=== PATIENT | male | born 1995 | race Caucasian/White ===

== ENCOUNTER 2017-12-23 00:02 | Emergency (ER) | payer OTHER ==
[2017-12-23] MEDS ORDERED: CEPHALEXIN 500 MG CAPSULE PO ONE (01:01)
[2017-12-23] MEDS ORDERED: DEXAMETHASONE SOD PHOS INJ 10 MG/1 ML VIAL IM ONE (01:01)
--- NOTE | 2017-12-23 01:09 | ER Document Report ---
HPI - HPI Patient complains to provider of: Sore throat, fever Pain Level: 4 Context: Patient is a 22-year-old male comes emergency department for chief complaint of sore throat and intermittent fever/chills with sweats over the past 2 days. He states he is having pain in the front of his neck now. Denies cough, shortness of breath, headache, vomiting, or any other current symptoms. No obvious sick contacts. No history of the same. No daily medications. Past Medical History - General Information source: Patient - Social History Smoking Status: Never Smoker Cigarette use (# per day): No Chew tobacco use (# tins/day): Yes Drug Abuse: None Lives with: Spouse/Significant other Family History: Reviewed & Not Pertinent - Medical History Medical History: Negative Surgical Hx: Negative - Immunizations Immunizations up to date: Yes Hx Diphtheria, Pertussis, Tetanus Vaccination: Yes Vertical Provider Document - CONSTITUTIONAL General Appearance: WD/WN, No Apparent Distress - INFECTION CONTROL TRAVEL OUTSIDE OF THE [place] IN LAST 30 DAYS: No - HEENT HEENT: Atraumatic, Normocephalic. negative: Normal ENT Exam - Exudative tonsillitis noted, no uvular edema, no evidence of peritonsillar abscess, clear airway, unremarkable ENT exam otherwise. - NECK Neck: Other - Bilateral cervical adenopathy, no submandibular swelling suggesting Luis's angina - RESPIRATORY Respiratory: Breath Sounds Normal, No Respiratory Distress - CARDIOVASCULAR Cardiovascular: Regular Rate, Regular Rhythm - GI/ABDOMEN Gastrointestinal: Abdomen Soft, Abdomen Non-Tender - NEURO Level of Consciousness: Awake, Alert, Appropriate - DERM Integumentary: Warm, Dry, No Rash Course - Re-evaluation Re-evalutation: Patient declines throat swab, he does have all 4 center criteria with fever, exudative pharyngitis, no cough, and cervical adenopathy. Patient is allergic to penicillin, given Keflex. Discussed follow-up, return precautions, patient states understanding and agreement. - Vital Signs Vital signs: Temp Pulse Resp BP Pulse Ox 99.3 F 63 14 131/76 H 99 12/23/17 00:20 12/23/17 00:20 12/23/17 00:20 12/23/17 00:20 12/23/17 00:20 Discharge - Discharge Clinical Impression: Exudative pharyngitis, Anterior cervical lymphadenopathy Condition: Stable Disposition: HOME, SELF-CARE Additional Instructions: Your examination meets the criteria for strep throat. You have been treated with the initial dose, take antibiotics to completion. Take Tylenol or ibuprofen for fever and pain. Drink plenty fluids and rest. Follow-up with primary care. Return if you worsen including worsening swelling , difficulty swallowing, or any other concerning symptoms. Prescriptions: Cephalexin Monohydrate [Keflex 500 mg Capsule] 500 mg PO BID #20 capsule Forms: Return to Work
[2017-12-23 02:01] VITALS: BP 130/73
== END 2017-12-23 02:00 | disposition home or self-care (01) ==
LOC: ER 00:02
DX: J02.9 Acute pharyngitis, unspecified (principal); R59.1 Generalized enlarged lymph nodes; R50.9 Fever, unspecified
CPT/HCPCS: 99282; 96372; J1100

== ENCOUNTER 2018-08-11 19:13 | Emergency (ER) | payer OTHER ==
[2018-08-11 19:47] VITALS: BP 123/75
--- NOTE | 2018-08-11 20:08 | RADIOLOGY REPORT (SQ) ---
EXAM DESCRIPTION: XR RIGHT SHOULDER 2 OR MORE VIEWS COMPLETED DATE/TME: 08/11/2018 00:00 CLINICAL HISTORY: 23 years, Male, Injured R shoulder lifting weights 2 wks ago COMPARISON: None. NUMBER OF VIEWS: TECHNIQUE: LIMITATIONS: None. FINDINGS: No fracture or dislocation. The acromioclavicular joint appears intact. There are no soft tissue calcifications. IMPRESSION: No radiographic abnormality. copyright 2010 [employer]- All Rights Reserved
--- NOTE | 2018-08-11 21:16 | ER Document Report ---
ED General - General Chief Complaint: Shoulder Pain Stated Complaint: RIGHT SHOULDER PAIN Time Seen by Provider: 08/11/18 20:45 TRAVEL OUTSIDE OF THE [place] IN LAST 30 DAYS: No - HPI Notes: Patient presents to the emergency department for evaluation of right shoulder pain. Is been going on for weeks. It has been insidious in onset. He denies any injury. He states that "goes out of socket" multiple times a day. He states he cannot move it. He states his friends have to put it back in place. He has no other joint pains. No fevers or chills. Otherwise he is in good health. - Related Data Allergies/Adverse Reactions: amoxicillin Allergy (Verified 12/23/17 00:16) Penicillins Allergy (Verified 12/23/17 00:16) Past Medical History - General Information source: Patient - Social History Smoking Status: Current Every Day Smoker Chew tobacco use (# tins/day): No Frequency of alcohol use: Social Drug Abuse: None Family History: Reviewed & Not Pertinent Patient has suicidal ideation: No Patient has homicidal ideation: No Renal/ Medical History: Denies: Hx Peritoneal Dialysis - Immunizations Immunizations up to date: Yes Hx Diphtheria, Pertussis, Tetanus Vaccination: Yes Review of Systems - Review of Systems Constitutional: No symptoms reported EENT: No symptoms reported Cardiovascular: No symptoms reported Respiratory: No symptoms reported Gastrointestinal: No symptoms reported Musculoskeletal: See HPI Physical Exam - Vital signs Vitals: Temp Pulse Resp BP Pulse Ox 98.7 F 61 16 123/75 98 08/11/18 19:46 08/11/18 19:46 08/11/18 19:46 08/11/18 19:46 08/11/18 19:46 Interpretation: Normal - Notes Notes: Patient is a 23-year-old male in no acute distress. Head is normocephalic and atraumatic. Heart regular rate and rhythm. Lungs are clear all station bilaterally. Examination of the right upper extremity has no obvious deformity. Passive range of motion is limited in flexion to approximately 100 degrees secondary to pain. Negative Gurmeet's test. Negative apprehension test. Radial pulses 2+. Negative drop arm test. Drinks plus 5 out of 5 at the elbow, wrist, fingers, thumb. Capillary refill is brisk. Course - Re-evaluation Re-evalutation: 08/11/18 21:13 Patient presents to the emergency department for evaluation of shoulder pain. I explained to him that I do not see any signs of dislocation on his exam or on imaging. Certainly he could be having some mild subluxation. I explained to him we will place him on anti-inflammatories. If his symptoms persist he may need an MRI. He did want a sling. I talked to him about the risks of adhesive capsulitis and he voiced understanding. We will have him follow-up with primary care, return to the ED with worsening or new concerning symptoms. - Vital Signs Vital signs: Temp Pulse Resp BP Pulse Ox 98.7 F 61 16 123/75 98 08/11/18 19:46 08/11/18 19:46 08/11/18 19:46 08/11/18 19:46 08/11/18 19:46 - Diagnostic Test Radiology reviewed: Reports reviewed - Unremarkable Discharge - Discharge Clinical Impression: Right shoulder pain Disposition: HOME, SELF-CARE Instructions: Temporary Sling ([facility]), Shoulder Injury ([facility]) Additional Instructions: Wear sling as discussed. Be sure to practice range of motion to avoid frozen shoulder. Take medication as prescribed, with food. If symptoms persist in 1-2 weeks, follow-up with primary care. Return to the emergency department with worsening or new concerning symptoms.
== END 2018-08-11 21:29 | disposition home or self-care (01) ==
LOC: ER 19:13
DX: M25.511 Pain in right shoulder (principal); F17.200 Nicotine dependence, unspecified, uncomplicated; Z88.0 Allergy status to penicillin
CPT/HCPCS: 99283

== ENCOUNTER 2019-11-25 04:57 | Emergency (ER) | payer OTHER ==
[2019-11-25 05:08] VITALS: BP 137/86
== END 2019-11-25 05:50 | disposition left against medical advice (07) ==
LOC: ER 04:57
DX: Z53.21 Procedure and treatment not carried out due to patient leaving prior to being seen by health care provider (principal)

== ENCOUNTER 2020-03-18 11:50 | Emergency (ER) | payer SELFPAY ==
[2020-03-18 11:58] VITALS: BP 136/87
[2020-03-18] MEDS ORDERED: FAMOTIDINE 20 MG TABLET PO ONE (12:09)
[2020-03-18] MEDS ORDERED: METHYLPREDNISOLONE INJ 125 MG/2 ML SDV IM ONE (12:09)
[2020-03-18] MEDS ORDERED: DIPHENHYDRAMINE HCL 50 MG/ML VIAL IM ONE (12:09)
--- NOTE | 2020-03-18 12:09 | ER Document Report ---
ED Medical Screen (RME) - General Chief Complaint: Redness of Eye Stated Complaint: EYE IRRITATION Time Seen by Provider: 03/18/20 12:03 Mode of Arrival: Ambulatory Information source: Patient Notes: 24-year-old male presented to ED for poison tk to both hands and around both eyes. Both eyes are swollen inflamed. He states both eyes do hurt. We will give him Benadryl Pepcid and Solu-Medrol. He will be observed to ensure this does decrease the pressure and he will get an eye exam by another physician. Patient is alert oriented respirations regular nonlabored speaking in full sentences. I have greeted and performed a rapid initial assessment of this patient. A comprehensive ED assessment and evaluation of the patient, analysis of test results and completion of medical decision making process will be conducted by an additional ED providers. TRAVEL OUTSIDE OF THE [place] IN LAST 30 DAYS: No - Related Data Allergies/Adverse Reactions: amoxicillin Allergy (Verified 03/18/20 12:05) Penicillins Allergy (Verified 03/18/20 12:05) Past Medical History - Social History Chew tobacco use (# tins/day): No Frequency of alcohol use: None Drug Abuse: None Renal/ Medical History: Denies: Hx Peritoneal Dialysis - Immunizations Immunizations up to date: Yes Hx Diphtheria, Pertussis, Tetanus Vaccination: Yes Physical Exam - Vital signs Vitals: Temp Pulse Resp BP Pulse Ox 98.5 F 96 16 136/87 H 99 03/18/20 11:56 03/18/20 11:56 03/18/20 11:56 03/18/20 11:56 03/18/20 11:56 Course - Vital Signs Vital signs: Temp Pulse Resp BP Pulse Ox 98.5 F 96 16 136/87 H 99 03/18/20 11:56 03/18/20 11:56 03/18/20 11:56 03/18/20 11:56 03/18/20 11:56
--- NOTE | 2020-03-18 14:27 | ER Document Report ---
ED General - General Chief Complaint: Eye Problem Stated Complaint: EYE IRRITATION Time Seen by Provider: 03/18/20 12:03 Mode of Arrival: Ambulatory Notes: Patient is a 24-year-old male who presents emergency department with a chief complaint of a rash to his entire body, primarily his arms, torso, and face. Patient states that he was exposed to poison tk about 2 days ago. States that he used [id number] Benadryl spray and calamine lotion, but had little relief of his symptoms. Denies any shortness of breath or difficulty breathing. Denies any past medical history. Patient received Benadryl, famotidine, and Solu-Medrol in triage. States that he feels a little bit better. TRAVEL OUTSIDE OF THE [place] IN LAST 30 DAYS: No - Related Data Allergies/Adverse Reactions: amoxicillin Allergy (Verified 03/18/20 12:05) Penicillins Allergy (Verified 03/18/20 12:05) Past Medical History - General Information source: Patient - Social History Smoking Status: Current Every Day Smoker Chew tobacco use (# tins/day): No Frequency of alcohol use: None Drug Abuse: None Family History: Reviewed & Not Pertinent Renal/ Medical History: Denies: Hx Peritoneal Dialysis - Immunizations Immunizations up to date: Yes Hx Diphtheria, Pertussis, Tetanus Vaccination: Yes Review of Systems - Review of Systems Notes: REVIEW OF SYSTEMS: CONSTITUTIONAL : Denies recent illness. Denies recent unintentional weight loss. Denies fever, chills, or sweats. EENT: Denies ear, throat, or mouth pain, discharge, or symptoms. Denies nasal or sinus congestion. See HPI. CARDIOVASCULAR: Denies chest pain. RESPIRATORY: Denies shortness of breath, cough, congestion, difficulty breathing, or wheezing. GASTROINTESTINAL: Denies nausea, vomiting, and diarrhea. Denies abdominal pain. Denies constipation. GENITOURINARY: Denies difficulty urinating, burning, blood in urine, urgency or frequency. MUSCULOSKELETAL: Denies neck and back pain. Denies joint pain or swelling. SKIN: See HPI. HEMATOLOGIC : Denies easy bruising or bleeding. LYMPHATIC: Denies swollen, painful, enlarged glands. NEUROLOGICAL: Denies no numbness or tingling denies weakness. Denies headache. Denies altered mental status. Denies alteration in speech. PSYCHIATRIC: Denies stress, anxiety, alteration in sleep patterns, or depression. All other systems reviewed and negative. Physical Exam - Vital signs Vitals: Temp Pulse Resp BP Pulse Ox 98.5 F 96 16 136/87 H 99 03/18/20 11:56 03/18/20 11:56 03/18/20 11:56 03/18/20 11:56 03/18/20 11:56 - Notes Notes: PHYSICAL EXAMINATION: GENERAL: Appears well, healthy, well-nourished, no acute distress. HEAD: Normocephalic, atraumatic. EYES: PERRL, conjunctiva normal, all extraocular movements intact, sclera nonicteric; irritation noted on Lopez lamp exam. ENT: Moist mucous membranes. NECK: Supple, no noticeable swelling, redness, rash. Normal range of motion. LUNGS: Equal breath sounds bilaterally and clear to auscultation. No wheezes rales or rhonchi. CARDIOVASCULAR: S1-S2, regular rate, regular rhythm. Radial pulses 2+, normal. ABDOMEN: Normoactive bowel sounds. Soft, nontender, no guarding, no rebound tenderness, and no masses palpated. EXTREMITIES: Normal strength and range of motion, no pitting or edema. No cyanosis. NEUROLOGICAL: Moves all extremities upon command. Strength 5/5 in all extremities. PSYCH: Normal mood, normal affect. SKIN: Warm, dry. Erythematous rash consistent with poison tk with small blisters that crosses midline. - HEENT Visual acuity- Right eye: 20/70 Visual acuity- Left eye: 20/70 Visual acuity- Both eyes: 20/50 Corrective lenses worn: No Course - Re-evaluation Re-evalutation: 03/18/20 14:27 Rash consistent with poison tk exposure. Eye exam done and there is irritation noted to patient's cornea. Spoke with in regards to this case. We will start the patient on erythromycin eye ointment. Patient will have close follow-up with ophthalmology on Friday. Also start patient on prednisone and Pepcid. Anderson, nurse practitioner reevaluated patient states that his rash has improved. Lung sounds are clear. Follow-up precautions were given. Verbal discharge instructions were given to the patient. They verbalized understanding. They are stable for discharge. - Vital Signs Vital signs: Temp Pulse Resp BP Pulse Ox 98.5 F 96 16 136/87 H 99 03/18/20 11:56 03/18/20 11:56 03/18/20 11:56 03/18/20 11:56 03/18/20 11:56 Discharge - Discharge Clinical Impression: Allergic dermatitis due to poison tk, Corneal irritation of both eyes Condition: Stable Disposition: HOME, SELF-CARE Additional Instructions: Your being seen today for poison tk. Please take the steroid taper as directed. Return for any difficulty breathing, vomiting, passing out, or any other symptoms that are worrisome to you. Steroid taper should be taken as follows: Days 1-4: 60mg PO daily Days 5-9: 40mg PO daily Days 10-13: 20mg PO daily Days 14-20: 10mg PO daily Apply antibiotic eye ointment as directed. Follow-up with ophthalmology on Friday. Prescriptions: Prednisone [Deltasone 20 mg Tablet] 20 tab PO ASDIR 5 Days #23 tablet Erythromycin Base [Erythromycin Oph 1 gm Oint Ud] 1 applic OP QID #1 tube Famotidine [Pepcid 20 mg Tablet] 20 mg PO BID #10 tablet Forms: Return to Work Referrals: KAYLYNN FERRELL MD [ACTIVE STAFF] - 03/20/20 KASSY SOL PA-C [PHYSICIAN CAFE HELPER] - Follow up in 1 week
[2020-03-18] MEDS ORDERED: TETRACAINE HCL 0.5% OPH SOLN 4 ML OU ONE (14:30)
== END 2020-03-18 15:13 | disposition home or self-care (01) ==
LOC: ER 11:50
DX: L23.7 Allergic contact dermatitis due to plants, except food (principal); H57.89 Other specified disorders of eye and adnexa; F17.200 Nicotine dependence, unspecified, uncomplicated; Z88.0 Allergy status to penicillin
CPT/HCPCS: 99284; 96372; J1200; J2930; J3490